=== PATIENT | female | born 1960 | race African-American/Black ===

== ENCOUNTER 2023-11-19 16:29 | Emergency (ER) | payer OTHER ==
[~2023-11-19] VITALS: Ht 170.2 cm; Wt 69.5 kg
[2023-11-19 16:59] VITALS: BP 111/54; PULSE 74; RESP 16; O2SAT 97
[2023-11-19] MEDS ORDERED: SODIUM CHLORIDE 0.9% 500 ML IV ONE (17:30)
== END 2023-11-19 19:43 | disposition left against medical advice (07) ==
LOC: ER 16:29
DX: R53.1 Weakness (principal); R11.2 Nausea with vomiting, unspecified; R79.9 Abnormal finding of blood chemistry, unspecified; I10 Essential (primary) hypertension; E11.9 Type 2 diabetes mellitus without complications; Z90.710 Acquired absence of both cervix and uterus